=== PATIENT | male | born 1935 | race Caucasian/White ===

== ENCOUNTER 2020-05-18 13:50 | Outpatient (CLI) | payer MEDICARE, BC ==
--- NOTE | 2020-05-18 17:41 | XRAY Report ---
PROCEDURE: Lumbar Spine 2 View INDICATIONS: BACK CATHY, LUMBAR/SCIATICA, RIGHT TECHNIQUE: 3 views of the lumbar spine were acquired. COMPARISON: None. FINDINGS: Bones: 5 [id number] vertebrae are present. There is loss of the expected lumbar lordosis. No sp ondylolisthesis. Degenerative changes including intervertebral disc space narrowing, osteophytosis, a nd facet sclerosis are present throughout the lumbar spine. No compression deformities. No suspicious bony lesions. Soft tissues: Overlying bowel gas pattern is normal. No suspicious soft tissue calci fications. IMPRESSION: Degenerative change. No acute compression deformities. Reviewed by: Shama Durand MD on 05/18/2020 5:39 PM PDT Approved by: Shama Durand MD on 05/18/2020 5:39 PM PDT Station ID: [id number]
== END 2020-05-18 13:51 | disposition home or self-care (01) ==
LOC: LAB.S 13:50 → DI.S 13:51
PROVIDERS: ATTEND Emergency Medicine
DX: M54.41 Lumbago with sciatica, right side (principal); M47.26 Other spondylosis with radiculopathy, lumbar region
CPT/HCPCS: 72100

== ENCOUNTER 2020-06-18 16:06 | Outpatient (CLI) | payer MEDICARE, BC ==
[2020-06-18 16:30] LABS: BASOPHILS % (AUTO) 0.5 %; EOSINOPHILS # (AUTO) 0.1 10^3/uL (0.0-0.7); EOSINOPHILS % (AUTO) 1.5 %; HGB - HEMOGLOBIN 13.3 g/dL (14.0-18.0); LYMPHOCYTES # (AUTO) 1.4 10^3/uL (1.5-3.5); LYMPHOCYTES % (AUTO) 19.1 %; MEAN CORPUSCULAR HEMOGLOBIN 29.2 pg (27.0-31.0); MEAN CORPUSCULAR HGB CONC 32.4 g/dL (32.0-36.0); MEAN CORPUSCULAR VOLUME 90.1 fL (80.0-94.0); MEAN PLATELET VOLUME 11.1 fL (7.4-11.4); MONOCYTES # (AUTO) 1.1 10^3/uL (0.0-1.0); MONOCYTES % (AUTO) 14.5 %; NEUTROPHILS # (AUTO) 4.8 10^3/uL (1.5-6.6); NEUTROPHILS % (AUTO) 63.9 %; PLT - PLATELET COUNT 254 10^3/uL (130-450); RED BLOOD COUNT 4.55 10^6/uL (4.70-6.10); RED CELL DISTRIBUTION WIDTH 12.1 % (12.0-15.0); WHITE BLOOD COUNT 7.5 x10^3/uL (4.8-10.8)
[2020-06-18 16:40] LABS: CALCIUM 9.2 mg/dL (8.5-10.3); CREATININE 1.1 mg/dL (0.6-1.2)
[2020-06-18 16:48] LABS: INR 1.4 (0.8-1.2); PT - PROTHROMBIN TIME 15.7 secs (9.9-12.6)
== END 2020-06-18 16:07 | disposition home or self-care (01) ==
LOC: LAB 16:06
PROVIDERS: ATTEND Emergency Medicine
DX: M79.662 Pain in left lower leg (principal)
CPT/HCPCS: 36415; 80048; 85025; 85379; 85610

== ENCOUNTER 2020-06-18 17:02 | Emergency (ER) | payer MEDICARE, BC ==
[2020-06-18] MEDS ORDERED: RIVAROXABAN 15 MG TABLET PO STA ×2 (18:29→18:53)
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
[2020-06-18 18:55] VITALS: BP 138/61
--- NOTE | 2020-06-18 19:43 | Ultrasound Report ---
PROCEDURE: Duplex Ext Veins Left INDICATIONS: suspect DVT TECHNIQUE: Real-time imaging, as well as color and pulse Doppler interrogation, were performed of the lower extr emity deep veins from the inguinal ligament to the popliteal fossa. COMPARISON: None. FINDINGS: Common femoral vein, superficial femoral vein, and profunda vein are free of thrombus. There is occlusive thrombus in the left popliteal vein. Occlusive thrombus in one of the posterior ti bial veins and near occlusive thrombus in the other posterior tibial vein. Additional thrombus in a s uperficial vein in the medial calf. Peroneal veins are not well seen. IMPRESSION: Positive for DVT. Thrombus in the popliteal and posterior tibial veins. Additional thrombus in superf icial calf vein. Preliminary results provided to Dr. Mcgovern at 6:30 PM by the oem sales manager. Reviewed by: Dalton Nina MD on 06/18/2020 7:42 PM PST Approved by: Dalton Nina MD on 06/18/2020 7:42 PM PST Station ID: [id number]
== END 2020-06-18 19:14 | disposition home or self-care (01) ==
LOC: ED 17:02
DX: I82.4Y2 Acute embolism and thrombosis of unspecified deep veins of left proximal lower extremity (principal); Z79.01 Long term (current) use of anticoagulants; I10 Essential (primary) hypertension; M79.662 Pain in left lower leg
CPT/HCPCS: 36415; 80048; 85025; 85379; 85610; 93971; 99284; A9270